=== PATIENT | female | born 1975 | race Caucasian/White ===

== ENCOUNTER 2017-09-08 18:49 | Emergency (ER) | payer SELFPAY ==
[2017-09-08 19:21] VITALS: O2SAT 100
[2017-09-08] MEDS ORDERED: Promethazine/Cod 6.25mg-10mg/5ml Syr UD PO STA (20:00)
--- NOTE | 2017-09-08 20:19 | C.PDOC ---
History Of Present Illness 42 year old female presents to the ED for evaluation of cold symptoms associated with body aches, subjective fever, dry cough for the past week. Pt admits, (+) sick contact family member similar sx. Otherwise, Patient denies headache, drooling, lethargy, CP, SOB, dyspnea, vomit, diarrhea, recent travel. Time Seen by Provider: 09/08/17 19:35 Chief Complaint (Nursing): Flu-like Symptoms History Per: Patient History/Exam Limitations: no limitations Onset/Duration Of Symptoms: Days Current Symptoms Are (Timing): Still Present Location Of Pain: Throat Sick Contacts (Context): None Associated Symptoms: Fever, Cough, Myalgias Recent travel outside of the [place]: No Additional History Per: Patient Past Medical History Reviewed: Historical Data, Nursing Documentation, Vital Signs Vital Signs: Last Vital Signs Temp 99 F 09/08/17 19:15 Pulse 83 09/08/17 19:15 Resp 20 09/08/17 19:15 BP 119/79 09/08/17 19:15 Pulse Ox 100 09/08/17 20:22 - Medical History PMH: No Chronic Diseases Surgical History: Appendectomy Family History: States: Unknown Family Hx - Social History Hx Tobacco Use: No Hx Alcohol Use: No Hx Substance Use: No - Immunization History Hx Tetanus Toxoid Vaccination: No Hx Influenza Vaccination: No Hx Pneumococcal Vaccination: No Review Of Systems Constitutional: Positive for: Fever. Negative for: Chills ENT: Positive for: Nose Congestion Cardiovascular: Negative for: Chest Pain, Palpitations Respiratory: Positive for: Cough. Negative for: Shortness of Breath Gastrointestinal: Negative for: Nausea, Vomiting, Abdominal Pain, Diarrhea Genitourinary: Negative for: Dysuria, Frequency Skin: Negative for: Rash Neurological: Negative for: Weakness, Numbness Physical Exam - Physical Exam Appears: Well, Non-toxic, No Acute Distress Skin: Normal Color, Warm, Dry, No Rash Head: Normacephalic Eye(s): bilateral: PERRL Ear(s): Bilateral: Normal Nose: Discharge (scant clear B/L), No Deformity Oral Mucosa: Moist, No Drooling Throat: Erythema (mild B/L), No Exudate, No Drooling Neck: Trachea Midline, Supple Chest: Symmetrical Cardiovascular: Rhythm Regular, No Murmur, No JVD Respiratory: No Decreased Breath Sounds, No Accessory Muscle Use, No Rales, No Rhonchi, No Stridor, No Wheezing Gastrointestinal/Abdominal: Soft, No Tenderness, No Distention, No Guarding, No Rebound Extremity: No Pedal Edema, No Deformity, No Swelling Neurological/Psych: Oriented x3, Normal Speech, Normal Cognition Gait: Steady ED Course And Treatment O2 Sat by Pulse Oximetry: 100 (On RA) Pulse Ox Interpretation: Normal - Radiology CXR: Interpreted by Me, Viewed By Me CXR Interpretation: Yes: No Acute Disease Progress Note: Plan: -CXR. -Phenergan/codeine 5 ml PO. -Tylenol 975 mg PO. - Zofran 4 mg PO. -Prednisone 60 mg PO. On re-evaluation, pt is awake, comforatble, not in any apparent distress. Afebrile, hemodynamicay stable. NOn -toxic. Tolerate Po well in ED. PuslEOx 100% RA. Neck: SUpple, (-) midline tenderness. ENT: no acute findings. Lungs: CTA B/L, BS equal B/L. Abd: benign. Neurologicaly intact. Imaging review and appears normal. Pt has clinical findings c /w bronchitis. Pt advised on course of ds. ref. to f/u with PMD in 2-3 days for re-eavl. return if any worsneing or new changes. Disposition Counseled Patient/Family Regarding: Studies Performed, Diagnosis, Need For Followup, Rx Given - Disposition Referrals: Treasure Montalvo MD [Medical Doctor] - Disposition: HOME/ ROUTINE Disposition Time: 20:55 Condition: STABLE Additional Instructions: ENCOURAGE FLUIDS TAKE MEDICATION PRESCRIBED FOLLOW UP WITH PMD IN 2-3 DAYS FOR RE-EVALUATION. RETURN TO ED IF ANY WORSENING OR NEW CHANGES. 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 - Scribe Statement The provider has reviewed the documentation as recorded by the Scribe Zhao Quiroz All medical record entries made by the Scribe were at my direction and personally dictated by me. I have reviewed the chart and agree that the record accurately reflects my personal performance of the history, physical exam, medical decision making, and the department course for this patient. I have also personally directed, reviewed, and agree with the discharge instructions and disposition.
[2017-09-08] MEDS ORDERED: Promethazine/Cod 6.25mg-10mg/5ml Syr UD ONE (20:20)
[2017-09-08 21:09] VITALS: BP 107/76; PULSE 71; RESP 18; TEMP 97.7
--- NOTE | 2017-09-09 08:23 | RAD ---
Chest x-ray two views History: Cough. Comparison: None available. Findings: No focal infiltrate or effusion. Heart size within normal limits. Impression: No focal infiltrate or effusion.
== END 2017-09-08 21:09 | disposition home or self-care (01) ==
LOC: C.ER 18:49
DX: J40 Bronchitis, not specified as acute or chronic (principal)

== ENCOUNTER 2017-11-26 00:26 | Emergency (ER) | payer MEDICAID ==
[2017-11-26] MEDS ORDERED: Sodium Chloride 0.9% 1,000 ML IV ONE (01:41)
[2017-11-26] MEDS ORDERED: Sodium Chloride 0.9% 1,000 ML ONE (01:54)
[2017-11-26 02:42] LABS: BASO % 0.5 % (0.0-2.0); EOS # 0.1 K/uL (0.0-0.7); EOS % 0.7 % (0.0-4.0); HEMOGLOBIN 6.9 g/dL (11.0-16.0); LYMPH # 3.8 K/uL (1.0-4.3); MEAN CELL VOLUME 63.1 fL (81.0-99.0); MEAN CORPUSCULAR HEMOGLOBIN 19.2 pg (27.0-31.0); MEAN CORPUSCULAR HGB CONC 30.4 g/dL (33.0-37.0); MEAN PLATELET VOLUME 11.2 fL (7.2-11.7); MONO # 0.6 K/uL (0.0-0.8); MONO % 7.8 % (0.0-10.0); NEUT # 3.2 K/uL (1.8-7.0); RBC 3.6 Mil/uL (3.80-5.20); RED CELL DISTRIBUTION WIDTH 19.5 % (11.5-14.5); WHITE BLOOD COUNT 7.7 K/uL (4.8-10.8)
[2017-11-26 02:57] LABS: HCG,QUALITATIVE URINE NEGATIVE (NEGATIVE)
[2017-11-26 03:02] LABS: ALB/GLOB RATIO 0.9 (1.0-2.1); ALBUMIN 3.7 g/dL (3.5-5.0); ALT/SGPT 7 U/L (9-52); AST/SGOT 16 U/L (14-36); BLOOD UREA NITROGEN 13 mg/dL (7-17); CALCIUM 8.5 mg/dl (8.6-10.4); GFR AFRICAN-AMERICAN > 60; GFR NON-AFRICAN AMERICAN > 60
[2017-11-26 03:05] LABS: SQUAMOUS EPITHIAL 9 /hpf (0-5); URINE BACTERIA RARE (<OCC); URINE BILIRUBIN NEGATIVE (NEGATIVE); URINE BLOOD NEGATIVE (NEGATIVE); URINE CLARITY Hazy (Clear); URINE COLOR Yellow (YELLOW); URINE GLUCOSE (UA) NORMAL (Normal); URINE LEUKOCYTE ESTERASE NEG Leu/uL (Negative); URINE PROTEIN NEGATIVE (NEGATIVE); URINE UROBILINOGEN NORMAL mg/dL (0.2-1.0)
--- NOTE | 2017-11-26 03:45 | C.PDOC ---
History Of Present Illness <Lani Ferrari - Last Filed: 11/26/17 06:32> <Arabella You - Last Filed: 11/26/17 23:23> 42 y/o female presents to the ED complaining of a headache since yesterday. Patient notes she has had headaches for the past 2-3 years, and yesterday her pain increased. She has never been evaluated for her headaches before. Patient was concerned about the possibility of high blood pressure, and took 1 dose of her husbands metoprolol. No prior hx of hypertension. Patient has not been evaluated by an eye doctor. She denies any associated fever, nausea, vomiting, visual changes, chest pain, or SOB. Also tried taking Tylenol without relief. (Lani Ferrari) History Per: Patient History/Exam Limitations: no limitations Onset/Duration Of Symptoms: Days (x2) Current Symptoms Are (Timing): Still Present <Lani Ferrari - Last Filed: 11/26/17 06:32> <Arabella You - Last Filed: 11/26/17 23:23> Time Seen by Provider: 11/26/17 01:33 Chief Complaint (Nursing): Headache Past Medical History Reviewed: Historical Data, Nursing Documentation, Vital Signs Surgical History: Appendectomy Family History: States: Unknown Family Hx - Social History Hx Tobacco Use: No Hx Alcohol Use: No Hx Substance Use: No - Immunization History Hx Tetanus Toxoid Vaccination: No Hx Influenza Vaccination: No Hx Pneumococcal Vaccination: No <Lani Ferrari - Last Filed: 11/26/17 06:32> Vital Signs: Last Vital Signs Temp 98.2 F 11/26/17 04:27 Pulse 67 11/26/17 06:26 Resp 16 11/26/17 06:26 BP 112/69 11/26/17 06:26 Pulse Ox 98 11/26/17 06:34 Review Of Systems Except As Marked, All Systems Reviewed And Found Negative. Constitutional: Negative for: Fever, Chills Eyes: Negative for: Vision Change Cardiovascular: Negative for: Chest Pain Respiratory: Negative for: Shortness of Breath Gastrointestinal: Negative for: Nausea, Vomiting Neurological: Positive for: Headache <Lani Ferrari - Last Filed: 11/26/17 06:32> Physical Exam - Physical Exam Appears: Well, Non-toxic, No Acute Distress Skin: Normal Color, Warm, Dry Head: Atraumatic, Normacephalic Eye(s): bilateral: Normal Inspection, EOMI Nose: Normal Oral Mucosa: Moist Neck: Normal ROM, Supple Chest: Symmetrical Cardiovascular: Rhythm Regular Respiratory: Normal Breath Sounds, No Rales, No Rhonchi, No Wheezing Gastrointestinal/Abdominal: Normal Exam, Soft, No Tenderness Extremity: Bilateral: Atraumatic, Normal Color And Temperature, Normal ROM Neurological/Psych: Oriented x3, Normal Speech, No Other (focal deficits) <Lani Ferrari - Last Filed: 11/26/17 06:32> ED Course And Treatment - Laboratory Results Result Diagrams: 11/26/17 02:36 11/26/17 02:36 O2 Sat by Pulse Oximetry: 98 (RA) Pulse Ox Interpretation: Normal - CT Scan/US CT Head Other Rad Studies (CT/US): Read By Radiologist, Radiology Report Reviewed CT/US Interpretation: FINDINGS: Brain: No intracranial hemorrhage. No mass. No definite edema. Ventricles: No hydrocephalus. Bones/joints: No acute fracture. Soft tissues: Unremarkable. Sinuses: Scattered mild mucosal thickening. Small fluid within right frontal sinus. RIGHT maxillary. retention cyst. Mastoid air cells: No mastoid effusion. Orbits: Unremarkable as visualized. IMPRESSION: 1. No definite acute intracranial abnormality. 2. Sinus disease. Thank you for allowing us to participate in the care of your patient. Dictated and Authenticated by: Marlon Barrientos MD. 11/26/2017 4:05 AM Eastern Time ([place] & [place]) Progress Note: Patient given IV fluids, Toradol, and Reglan. Labs ordered and reviewed. CT Head ordered, and is negative. All diagnostic findings discussed with patient. Labs reviewed, RBC 3.6, Hb 6.9. Case discussed with Dr. Sarah Arriola , patient will be admitted for symptomatic anemia. <Lani Ferrari - Last Filed: 11/26/17 06:32> - Laboratory Results Result Diagrams: 11/26/17 02:36 11/26/17 02:36 <Arabella You - Last Filed: 11/26/17 23:23> Disposition Discussed With Dr.: Mini Arriola Doctor Will See Patient In The: Hospital Counseled Patient/Family Regarding: Studies Performed, Diagnosis - Disposition Disposition Time: 04:28 - POA Present On Arrival: None <Lani Ferrari - Last Filed: 11/26/17 06:32> <Arabella You - Last Filed: 11/26/17 23:23> - Disposition Disposition: AGAINST MEDICAL ADVICE Condition: STABLE Instructions: Normocytic Normochromic Anemia (DC) Forms: [employer] (Citizen Of [place]) - Clinical Impression Clinical Impression: Symptomatic anemia - 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 - Scribe Statement The provider has reviewed the documentation as recorded by the Scribe (Linda Ro) <Lani Ferrari - Last Filed: 11/26/17 06:32> <Arabella You - Last Filed: 11/26/17 23:23> - Scribe Statement All medical record entries made by the Scribe were at my direction and personally dictated by me. I have reviewed the chart and agree that the record accurately reflects my personal performance of the history, physical exam, medical decision making, and the department course for this patient. I have also personally directed, reviewed, and agree with the discharge instructions and disposition. (Lani Ferrari)
--- NOTE | 2017-11-26 04:06 | CT ---
EXAM: CT Head Without Intravenous Contrast CLINICAL HISTORY: 42 years old, female; Pain; Headache TECHNIQUE: Axial computed tomography images of the head/brain without intravenous contrast. All CT scans at this facility use one or more dose reduction techniques, viz.: automated exposure control; ma/kV adjustment per patient size (including targeted exams where dose is matched to indication; i.e. head); or iterative reconstruction technique. Coronal and sagittal reformatted images were created and reviewed. COMPARISON: No relevant prior studies available. FINDINGS: Brain: No intracranial hemorrhage. No mass. No definite edema. Ventricles: No hydrocephalus. Bones/joints: No acute fracture. Soft tissues: Unremarkable. Sinuses: Scattered mild mucosal thickening. Small fluid within right frontal sinus. RIGHT maxillary retention cyst. Mastoid air cells: No mastoid effusion. Orbits: Unremarkable as visualized. IMPRESSION: 1. No definite acute intracranial abnormality. 2. Sinus disease.
[2017-11-26 04:28] VITALS: TEMP 98.2
[2017-11-26 05:44] VITALS: O2SAT 98
[2017-11-26 06:28] VITALS: BP 112/69; PULSE 67; RESP 16
== END 2017-11-26 07:15 | disposition left against medical advice (07) ==
LOC: C.ER 00:26 → UNDOADMOB 04:28 → C.9E 04:28 → C.5S 05:50 → C.9E 05:50 → C.ER 07:15
DX: D64.9 Anemia, unspecified (principal)
CPT/HCPCS: 70450; 80053; 81001; 84703; 85025; 86850; 86900; 86920; 96361; 96374; 99285; J1885; J7040

== ENCOUNTER 2017-11-28 12:48 | Observation (INO) | payer MEDICAID ==
--- NOTE | 2017-11-28 14:10 | C.PDOC ---
Time Seen by Provider: 11/28/17 14:05 Chief Complaint (Nursing): Dizziness/Lightheaded Past Medical History Vital Signs: Last Vital Signs Temp 98.2 F 11/28/17 13:28 Pulse 71 11/28/17 13:28 Resp 20 11/28/17 13:28 BP 117/68 11/28/17 13:28 Pulse Ox 100 11/28/17 13:28 Surgical History: Appendectomy Family History: States: Unknown Family Hx - Social History Hx Tobacco Use: No Hx Alcohol Use: No Hx Substance Use: No - Immunization History Hx Tetanus Toxoid Vaccination: No Hx Influenza Vaccination: No Hx Pneumococcal Vaccination: No ED Course And Treatment O2 Sat by Pulse Oximetry: 100 Disposition - Disposition
[2017-11-28] MEDS ORDERED: Sodium Chloride 0.9% 1,000 ML IV ONE (14:27)
--- NOTE | 2017-11-28 14:29 | C.PDOC ---
History Of Present Illness 42 y/o female with PMHx of Chronic Anemia, Heavy Menses and Hemorrhoids presents to ED with complaints of persistent dizziness. Patient was seen on 11/26 and was found to have anemia with hemoglobin of 6.9, was admitted for blood transfusion. Patient signed out AMA prior to receiving blood transfusion and is requesting to stay now for further evaluation. Patient denies vomiting, rectal bleeding, blood disorders or any other complaints at this time. PMD: Dr. Montalvo Time Seen by Provider: 11/28/17 14:05 Chief Complaint (Nursing): Dizziness/Lightheaded History Per: Patient History/Exam Limitations: no limitations Onset/Duration Of Symptoms: Days Current Symptoms Are (Timing): Still Present Past Medical History Reviewed: Historical Data, Nursing Documentation, Vital Signs Vital Signs: Last Vital Signs Temp 98.2 F 11/28/17 13:28 Pulse 71 11/28/17 13:28 Resp 20 11/28/17 13:28 BP 117/68 11/28/17 13:28 Pulse Ox 100 11/28/17 15:41 - Medical History PMH: No Chronic Diseases Surgical History: Appendectomy Family History: States: No Known Family Hx - Social History Hx Tobacco Use: No Hx Alcohol Use: No Hx Substance Use: No - Immunization History Hx Tetanus Toxoid Vaccination: No Hx Influenza Vaccination: No Hx Pneumococcal Vaccination: No Review Of Systems Except As Marked, All Systems Reviewed And Found Negative. Constitutional: Negative for: Fever, Chills Cardiovascular: Positive for: Light Headedness. Negative for: Chest Pain, Palpitations Respiratory: Negative for: Cough, Shortness of Breath, SOB with Excertion, Wheezing Gastrointestinal: Negative for: Nausea, Vomiting, Abdominal Pain, Diarrhea, Hematochezia, Hematemesis Genitourinary: Positive for: Vaginal Bleeding (hx of heavy menses- none currently). Negative for: Dysuria Neurological: Positive for: Dizziness. Negative for: Headache Physical Exam - Physical Exam Appears: Well, Non-toxic, No Acute Distress Skin: Warm, Dry, No Rash Head: Atraumatic, Normacephalic Eye(s): bilateral: PERRL, EOMI, Conjunctiva Pale Oral Mucosa: Moist Neck: Normal ROM, Supple Cardiovascular: Rhythm Regular Respiratory: Normal Breath Sounds, No Rales, No Rhonchi, No Wheezing Gastrointestinal/Abdominal: Soft, No Tenderness, No Distention, No Guarding, No Rebound Back: Normal Inspection, No CVA Tenderness Extremity: Normal ROM, Capillary Refill (<2 seconds) Neurological/Psych: Oriented x3, Normal Speech, Normal Cognition Gait: Steady ED Course And Treatment - Laboratory Results Result Diagrams: 11/28/17 14:39 11/28/17 14:39 O2 Sat by Pulse Oximetry: 100 Pulse Ox Interpretation: Normal Medical Decision Making Medical Decision Making: Plan: ECG, POC urine Preg, Blood work ordered. IV fluids administered Patient will be admitted for blood transfusion. Labs significant for microcytic anemia. Patient is symptomatic and will need further evaluation. Transfusion of 2 units ordered. Spoke to Dr. Fenton and will be admitted for symptomatic anemia Disposition - Disposition Disposition: HOSPITALIZED Disposition Time: 15:40 Condition: FAIR - Clinical Impression Clinical Impression: Dizziness, Symptomatic anemia, Microcytic anemia - Scribe Statement The provider has reviewed the documentation as recorded by the Ronnieibbrandyn Stout All medical record entries made by the Ronnieibbrandyn were at my direction and personally dictated by me. I have reviewed the chart and agree that the record accurately reflects my personal performance of the history, physical exam, medical decision making, and the department course for this patient. I have also personally directed, reviewed, and agree with the discharge instructions and disposition.
[2017-11-28 14:45] LABS: BASO % 0.7 % (0.0-2.0); EOS # 0.1 K/uL (0.0-0.7); EOS % 0.8 % (0.0-4.0); HEMOGLOBIN 7.5 g/dL (11.0-16.0); LYMPH # 2.8 K/uL (1.0-4.3); LYMPH % 45.1 % (20.0-40.0); MEAN CELL VOLUME 62.6 fL (81.0-99.0); MEAN CORPUSCULAR HEMOGLOBIN 19.2 pg (27.0-31.0); MEAN CORPUSCULAR HGB CONC 30.6 g/dL (33.0-37.0); MONO # 0.5 K/uL (0.0-0.8); MONO % 7.8 % (0.0-10.0); NEUT # 2.9 K/uL (1.8-7.0); NEUT % 45.6 % (50.0-75.0); RBC 3.93 Mil/uL (3.80-5.20); RED CELL DISTRIBUTION WIDTH 19.1 % (11.5-14.5); WHITE BLOOD COUNT 6.3 K/uL (4.8-10.8)
[2017-11-28 14:53] LABS: INR 1.1; PROTHROMBIN TIME 12.5 SECONDS (9.7-12.2)
[2017-11-28 14:59] LABS: ALB/GLOB RATIO 0.9 (1.0-2.1); ALT/SGPT 12 U/L (9-52); AST/SGOT 15 U/L (14-36); BLOOD UREA NITROGEN 10 mg/dL (7-17); GFR AFRICAN-AMERICAN > 60; GFR NON-AFRICAN AMERICAN > 60
[2017-11-28] MEDS ORDERED: Sodium Chloride 0.9% 1,000 ML ONE (15:11)
--- NOTE | 2017-11-28 19:40 | CP.PCM.HP ---
Past Patient History - Infectious Disease Hx of Infectious Diseases: None - Past Social History Smoking Status: Never Smoked - PSYCHIATRIC Hx Substance Use: No - SURGICAL HISTORY Hx Appendectomy: Yes - ANESTHESIA Hx Anesthesia: Yes Hx Anesthesia Reactions: No Meds Allergies/Adverse Reactions: Allergies Allergy/AdvReac Type Severity Reaction Status Date / Time No Known Allergies Allergy Verified 11/28/17 13:34 Results - Vital Signs Recent Vital Signs: Last Vital Signs Temp 98.2 F 11/28/17 19:19 Pulse 70 11/28/17 19:19 Resp 18 11/28/17 19:19 BP 121/85 11/28/17 19:19 Pulse Ox 99 11/28/17 18:30 - Labs Result Diagrams: 11/28/17 14:39 11/28/17 14:39 Labs: Laboratory Results - last 24 hr 11/28/17 11/28/17 11/28/17 14:39 14:39 14:39 WBC 6.3 RBC 3.93 Hgb 7.5 L Hct 24.6 L MCV 62.6 L MCH 19.2 L MCHC 30.6 L RDW 19.1 H Plt Count 255 MPV 11.0 Neut % (Auto) 45.6 L Lymph % (Auto) 45.1 H [place] % (Auto) 7.8 Eos % (Auto) 0.8 Baso % (Auto) 0.7 Neut # (Auto) 2.9 Lymph # (Auto) 2.8 [place] # (Auto) 0.5 Eos # (Auto) 0.1 Baso # (Auto) 0.0 PT 12.5 H INR 1.1 APTT 30 Sodium 139 Potassium 4.5 Chloride 103 Carbon Dioxide 26 Anion Gap 14 BUN 10 Creatinine 0.6 L Est GFR ( Amer) > 60 Est GFR (Non-Af Amer) > 60 Random Glucose 96 Calcium 9.0 Total Bilirubin 0.7 AST 15 ALT 12 Alkaline Phosphatase 49 Total Protein 8.4 H Albumin 4.0 Globulin 4.3 H Albumin/Globulin Ratio 0.9 L Blood Type Antibody Screen 11/28/17 14:39 WBC RBC Hgb Hct MCV MCH MCHC RDW Plt Count MPV Neut % (Auto) Lymph % (Auto) [place] % (Auto) Eos % (Auto) Baso % (Auto) Neut # (Auto) Lymph # (Auto) [place] # (Auto) Eos # (Auto) Baso # (Auto) PT INR APTT Sodium Potassium Chloride Carbon Dioxide Anion Gap BUN Creatinine Est GFR ( Amer) Est GFR (Non-Af Amer) Random Glucose Calcium Total Bilirubin AST ALT Alkaline Phosphatase Total Protein Albumin Globulin Albumin/Globulin Ratio Blood Type O POSITIVE Antibody Screen Negative
[2017-11-29 01:47] VITALS: RESP 20
[2017-11-29 07:16] LABS: HEMOGLOBIN 9.4 g/dL (11.0-16.0); MEAN CORPUSCULAR HEMOGLOBIN 21.5 pg (27.0-31.0); MEAN CORPUSCULAR HGB CONC 31.8 g/dL (33.0-37.0); RBC 4.36 Mil/uL (3.80-5.20); RED CELL DISTRIBUTION WIDTH 24.7 % (11.5-14.5); WHITE BLOOD COUNT 8.7 K/uL (4.8-10.8)
[2017-11-29 07:29] LABS: MEAN CELL VOLUME 67.6 fL (81.0-99.0)
[2017-11-29 12:34] LABS: IRON 24 ug/dL (37-170)
[2017-11-29 12:43] LABS: % IRON SATURATION 6 (20-55); TOTAL IRON BINDING CAPACITY 431 ug/dL (250-450)
[2017-11-29 16:08] VITALS: BP 127/84; TEMP 98.1; O2SAT 96
[2017-11-29 16:27] VITALS: PULSE 72
--- NOTE | 2017-11-29 17:44 | CP.PCM.PN ---
Subjective - Date & Time of Evaluation Date of Evaluation: 11/29/17 Time of Evaluation: 14:00 - Subjective Subjective: CHEMIST PHYSICAL NOTES Patient seen today, denies any chest , sob, dizziness, abdominal pain N/VD s/p 2 unit of PRBC hgb - improved - 9.4>7.5 labs- iron def. anemia D/W Dr. Fenton, stable for discharge home today and f/u PMD in [address] jiménez office in 1 week( f/u for anemia) and continue wiht feso2 at home discharge plan discussed with patient, who understands and agrees with plan RX given [id number] Objective - Vital Signs/Intake and Output Vital Signs (last 24 hours): Temp Pulse Resp BP Pulse Ox 98.1 F 72 20 127/84 96 11/29/17 15:20 11/29/17 16:00 11/29/17 15:20 11/29/17 15:20 11/29/17 15:20 Intake and Output: 11/29/17 11/29/17 06:59 18:59 Intake Total 795 680 Balance 795 680 - Medications Medications: Current Medications Acetaminophen (Tylenol 325mg Tab) 650 mg PO Q6 PRN PRN Reason: Headache Last Admin: 11/29/17 13:56 Dose: 650 mg - Labs Labs: 11/29/17 06:59 11/28/17 14:39 PT 12.5 SECONDS (9.7-12.2) H 11/28/17 14:39 INR 1.1 11/28/17 14:39 APTT 30 SECONDS (21-34) 11/28/17 14:39
== END 2017-11-29 18:14 | disposition home or self-care (01) ==
LOC: C.ER 12:48 → C.9E 15:39 → C.6T 17:32
PROVIDERS: ADMIT Internal Medicine Critical Care Medicine; ATTEND Internal Medicine Critical Care Medicine
DX: D50.9 Iron deficiency anemia, unspecified (principal)
CPT/HCPCS: 36415; 36430; 80053; 82728; 83540; 83550; 85025; 85027; 85610; 85730; 86850; 86900; 86920; 96360; 99285; G0378; J7040; P9051

== ENCOUNTER 2018-07-30 00:10 | Emergency (ER) | payer MEDICAID ==
[2018-07-30 00:18] VITALS: O2SAT 97
[2018-07-30] MEDS ORDERED: Sodium Chloride 0.9% 500 ML IV ONE (00:31)
--- NOTE | 2018-07-30 00:48 | C.PDOC ---
History Of Present Illness 43 year old female with a Hx of vaginal bleeding and anemia requiring transfusions in the past presents to the ER with a complaint of dizziness for the last 3 days, nonvertiginous, lightheadedness, worse with exertion, and headache. Patient states symptoms are similar to when she was diagnosed with anemia and required transfusion. Patient reports she has been having vaginal bleeding for the past 7 days from her period which she states very heavy with clots. Denies pelvic cramping, bleeding from other locations, or other chronic illnesses. Hx of appendectomy. No significant family Hx, no drug/tobacco/ETOH use. PMD: Dr. Montalvo <Joanna John - Last Filed: 08/01/18 16:05> <Harriet Godinez - Last Filed: 07/30/18 01:44> History Per: Patient History/Exam Limitations: no limitations Onset/Duration Of Symptoms: Hrs Current Symptoms Are (Timing): Still Present Activity At Onset Of Symptoms: Exertional Activity Seizure Or Post-ictal Symptoms: None Possible Causative Factor(s): Other (Anemia, Vaginal bleeding) Fall Associated With With Symptoms: No Recent travel outside of the [place]: No - Symptoms Of CVA Associated Symptoms: denies: Impaired Speech, Seizure Activity, New Vision Deficit(Left), New Vision Deficit(Right), Decreased Ability To Walk, New Confusion <Joanna John - Last Filed: 08/01/18 16:05> Time Seen by Provider: 07/30/18 00:27 Chief Complaint (Nursing): Dizziness/Lightheaded Past Medical History Vital Signs: Last Vital Signs Temp 98.2 F 07/30/18 00:10 Pulse 81 07/30/18 00:10 Resp 20 07/30/18 00:10 BP 117/74 07/30/18 00:10 Pulse Ox 97 07/30/18 00:56 <Harriet Godinez - Last Filed: 07/30/18 01:44> Reviewed: Historical Data, Nursing Documentation, Vital Signs Vital Signs: Last Vital Signs Temp 98.2 F 07/30/18 00:10 Pulse 81 07/30/18 00:10 Resp 20 07/30/18 00:10 BP 117/74 07/30/18 00:10 Pulse Ox 97 07/30/18 00:10 - Medical History PMH: Anemia, HTN Surgical History: Appendectomy Family History: States: Unknown Family Hx - Social History Hx Tobacco Use: No Hx Alcohol Use: No Hx Substance Use: No - Immunization History Hx Tetanus Toxoid Vaccination: No Hx Influenza Vaccination: No Hx Pneumococcal Vaccination: No <Joanna John - Last Filed: 08/01/18 16:05> Review Of Systems Cardiovascular: Positive for: Light Headedness Genitourinary: Positive for: Vaginal Bleeding Neurological: Positive for: Headache, Dizziness <Joanna John - Last Filed: 08/01/18 16:05> Physical Exam - Physical Exam Appears: No Acute Distress, Other (Tired appearing) Skin: Warm, Dry Head: Atraumatic, Normacephalic Eye(s): bilateral: PERRL, EOMI Nose: Normal Lips: Normal Appearing Throat: No Erythema, No Exudate Neck: Normal ROM, Supple Chest: Symmetrical, No Tenderness Cardiovascular: Rhythm Regular, No Murmur Respiratory: Normal Breath Sounds, No Wheezing Gastrointestinal/Abdominal: Soft, No Tenderness Back: Normal Inspection, No Decreased ROM Extremity: Normal ROM, No Deformity Neurological/Psych: Oriented x3, Normal Motor, Normal Sensation <Joanna John - Last Filed: 08/01/18 16:05> ED Course And Treatment - Laboratory Results Result Diagrams: 07/30/18 01:04 07/30/18 01:04 Pulse Ox Interpretation: Normal Reevaluation Time: 01:46 Reassessment Condition: Improved <Harriet Godinez - Last Filed: 07/30/18 01:44> - Laboratory Results Result Diagrams: 07/30/18 01:04 07/30/18 01:04 O2 Sat by Pulse Oximetry: 97 <Joanna John - Last Filed: 08/01/18 16:05> Medical Decision Making Medical Decision Making: Upon provider reevaluation patient is feeling better, is medically stable, and requires no further treatment in the ED at this time. Patient will be discharged home with Rx for macrobid . Counseling was provided and all questions were answered regarding diagnosis and need for follow up withdr montalvo. There is agreement to discharge plan. Return if symptoms persist or worsen. <Harriet Godinez - Last Filed: 07/30/18 01:44> Medical Decision Making: Impression: Lightheadedness Differential diagnosis includes but not limited to: Anemia, Electrolyte abnormality, Dehydration <Joanna John - Last Filed: 08/01/18 16:05> Disposition Counseled Patient/Family Regarding: Studies Performed, Diagnosis, Need For Followup, Rx Given - Disposition Disposition Time: 01:00 <Harriet Godinez - Last Filed: 07/30/18 01:44> <Joanna John - Last Filed: 08/01/18 16:05> - Disposition Referrals: Treasure Montalvo MD [Medical Doctor] - Disposition: HOME/ ROUTINE Condition: FAIR Additional Instructions: Please return if symptoms recur Prescriptions: Nitrofurantoin Macrocrystals [Macrobid] 1 cap PO BID #14 cap Instructions: Anemia Caused by Low Iron, Adult (DC), Urinary Tract Infection, Adult (DC), Heavy Periods (DC) Forms: [facility] (Mexican) - Clinical Impression Clinical Impression: Microcytic anemia, History of heavy vaginal bleeding, UTI (urinary tract infection) - Scribe Statement The provider has reviewed the documentation as recorded by the Scribe James Carter All medical record entries made by the Scribe were at my direction and personally dictated by me. I have reviewed the chart and agree that the record accurately reflects my personal performance of the history, physical exam, m edical decision making, and the department course for this patient. I have also personally directed, reviewed, and agree with the discharge instructions and disposition. <Joanna John - Last Filed: 08/01/18 16:05> Physician Patient Turnover Patient Signed Over To: Harriet Godinez Handoff Comments: Pending labs and dispo. <Joanna John - Last Filed: 08/01/18 16:05>
[2018-07-30] MEDS ORDERED: Sodium Chloride 0.9% 1,000 ML ONE (01:08)
[2018-07-30 01:11] LABS: BASO % 0.8 % (0.0-2.0); EOS % 0.8 % (0.0-4.0); HEMOGLOBIN 9.7 g/dL (11.0-16.0); LYMPH # 2.3 K/uL (1.0-4.3); LYMPH % 41.2 % (20.0-40.0); MEAN CELL VOLUME 75.7 fL (81.0-99.0); MEAN CORPUSCULAR HEMOGLOBIN 24.2 pg (27.0-31.0); MEAN PLATELET VOLUME 10.6 fL (7.2-11.7); MONO # 0.5 K/uL (0.0-0.8); MONO % 8.9 % (0.0-10.0); NEUT # 2.7 K/uL (1.8-7.0); NEUT % 48.3 % (50.0-75.0); NRBC % 0.1 % (0.0-2.0); RED CELL DISTRIBUTION WIDTH 18.9 % (11.5-14.5); WHITE BLOOD COUNT 5.6 K/uL (4.8-10.8)
[2018-07-30 01:15] LABS: HCG,QUALITATIVE URINE NEGATIVE (NEGATIVE); SQUAMOUS EPITHIAL 22 /hpf (0-5); URINE BACTERIA RARE (<OCC); URINE BILIRUBIN NEGATIVE (NEGATIVE); URINE BLOOD 3+ (NEGATIVE); URINE CLARITY Hazy (Clear); URINE COLOR Yellow (YELLOW); URINE GLUCOSE (UA) NORMAL (Normal); URINE LEUKOCYTE ESTERASE 1+ Leu/uL (Negative); URINE PROTEIN 2+ mg/dL (NEGATIVE); URINE UROBILINOGEN NORMAL mg/dL (0.2-1.0)
[2018-07-30 01:17] LABS: INR 1.2; PROTHROMBIN TIME 12.8 SECONDS (9.7-12.2)
[2018-07-30 01:23] LABS: ALB/GLOB RATIO 1.3 (1.0-2.1); ALBUMIN 4.6 g/dL (3.5-5.0); ALT/SGPT 20 U/L (9-52); AST/SGOT 19 U/L (14-36); BLOOD UREA NITROGEN 20 mg/dL (7-17); CALCIUM 8.9 mg/dl (8.6-10.4); GFR NON-AFRICAN AMERICAN > 60
[2018-07-30 01:31] LABS: TOTAL IRON BINDING CAPACITY 412 ug/dL (250-450)
[2018-07-30 01:33] LABS: % IRON SATURATION 8 (20-55); IRON 32 ug/dL (37-170)
[2018-07-30 01:59] LABS: FERRITIN 3.6 ng/mL
[2018-07-30 02:05] VITALS: BP 100/68; PULSE 70; RESP 18; TEMP 98.3
== END 2018-07-30 02:57 | disposition home or self-care (01) ==
LOC: C.ER 00:10
DX: D50.9 Iron deficiency anemia, unspecified (principal); N39.0 Urinary tract infection, site not specified; N93.9 Abnormal uterine and vaginal bleeding, unspecified; I10 Essential (primary) hypertension
CPT/HCPCS: 80053; 81001; 82728; 83540; 83550; 84703; 85025; 85610; 85730; 86850; 86870; 86900; 96360; 99285; J7040

== ENCOUNTER 2018-10-14 04:11 | Emergency (ER) | payer MEDICAID ==
[2018-10-14 04:23] VITALS: BP 131/86; PULSE 84; RESP 20; TEMP 98.9; O2SAT 99
[2018-10-14] MEDS ORDERED: Neomycin/Polymyxin/Hydrocort Otic Soln BOTTLE AS STA (04:45)
--- NOTE | 2018-10-14 04:50 | C.PDOC ---
History Of Present Illness 43 y/o female c/o 4 days of left ear pain. worse tonight. sts she had blood coming from ear. denies fever. denies foreign objects in ears. no head trauma. Time Seen by Provider: 10/14/18 04:18 Chief Complaint (Nursing): ENT Problem History Per: Patient History/Exam Limitations: None Onset/Duration Of Symptoms: Days (4) Current Symptoms Are (Timing): Worse Quality (Ear): Pain W/Touch, Other (blood from ear). denies: Foreign Body Symptoms Have Been: Continuous Severity: Moderate Past Medical History Reviewed: Historical Data, Nursing Documentation, Vital Signs Vital Signs: Last Vital Signs Temp 98.9 F 10/14/18 04:20 Pulse 84 10/14/18 04:20 Resp 20 10/14/18 04:20 BP 131/86 10/14/18 04:20 Pulse Ox 99 10/14/18 04:20 - Medical History PMH: Anemia, HTN Surgical History: Appendectomy Family History: States: Unknown Family Hx - Social History Hx Tobacco Use: No Hx Alcohol Use: No Hx Substance Use: No - Immunization History Hx Tetanus Toxoid Vaccination: No Hx Influenza Vaccination: No Hx Pneumococcal Vaccination: No Review Of Systems Constitutional: Negative for: Fever, Chills Eyes: Negative for: Pain ENT: Positive for: Ear Pain, Ear Discharge (blood tonight left). Negative for: Nose Discharge, Nose Congestion, Throat Pain Physical Exam - Physical Exam Appears: Non-toxic, No Acute Distress Skin: Warm, Dry Head: Atraumatic, Normacephalic Eye(s): bilateral: Normal Inspection Ear(s): Left: Normal (excoriation to medial aspect ecernal canal, no mastoid tenderness, tm intact), Right: TM Dull Nose: No Discharge Oral Mucosa: Moist Tongue: No Swelling Lips: No Swelling Throat: No Erythema, No Exudate Neck: Supple Lymphatic: No Adenopathy ED Course And Treatment O2 Sat by Pulse Oximetry: 99 Medical Decision Making Medical Decision Making: left ear pain with excoriation- will tx with tylenol and cortisporin otic suspension Disposition Counseled Patient/Family Regarding: Diagnosis, Need For Followup - Disposition Referrals: Treasure Montalvo MD [Medical Doctor] - Disposition: HOME/ ROUTINE Disposition Time: 04:51 Condition: GOOD Additional Instructions: Follow up with Dr Gray in 1-2 days. Tylenol 650 mg by mouth every 4-6 hours for pain No foreign objects in ears use 4 drops of cortisporin otic suspension in left ear every 8 hours for next week. Prescriptions: Acetaminophen [Tylenol 325mg tab] 650 mg PO Q6 #30 tab Instructions: Outer Ear Infection (DC) Forms: [facility] (Peruvian), General Discharge Instructions - Clinical Impression Clinical Impression: Otitis externa of left ear
== END 2018-10-14 05:09 | disposition home or self-care (01) ==
LOC: C.ER 04:11
DX: H60.92 Unspecified otitis externa, left ear (principal); I10 Essential (primary) hypertension

== ENCOUNTER 2018-11-04 21:32 | Emergency (ER) | payer MEDICAID ==
[2018-11-04 22:02] VITALS: BP 137/82; PULSE 78; RESP 16; TEMP 98; O2SAT 100
[2018-11-04] MEDS ORDERED: Albuterol 0.083% Inhal Sol (2.5 mg/3 mL) UD ONE (22:46)
[2018-11-04] MEDS ORDERED: Albuterol 0.083% Inhal Sol (2.5 mg/3 mL) UD INH SCH (23:00)
--- NOTE | 2018-11-04 23:32 | C.PDOC ---
History Of Present Illness 43 year old female presents after she woke up tonight feeling SOB with chest tightness. Patient reports Hx of asthma, also notes having some left ear pain. She used her husbands inhaler at home with no relief and took an aspirin. Denies fever, cough, or sore throat. Time Seen by Provider: 11/04/18 22:24 Chief Complaint (Nursing): Medical Clearance History Per: Patient History/Exam Limitations: no limitations Onset/Duration Of Symptoms: Hrs Current Symptoms Are (Timing): Still Present Recent travel outside of the [place]: No Past Medical History Reviewed: Historical Data, Nursing Documentation, Vital Signs Vital Signs: Last Vital Signs Temp 98 F 11/04/18 21:51 Pulse 78 11/04/18 21:51 Resp 16 11/04/18 21:51 BP 137/82 11/04/18 21:51 Pulse Ox 100 11/04/18 21:51 - Medical History PMH: Anemia, HTN Surgical History: Appendectomy Family History: States: Unknown Family Hx - Social History Hx Tobacco Use: No Hx Alcohol Use: No Hx Substance Use: No - Immunization History Hx Tetanus Toxoid Vaccination: No Hx Influenza Vaccination: No Hx Pneumococcal Vaccination: No Review Of Systems Constitutional: Negative for: Fever, Chills ENT: Negative for: Throat Pain Cardiovascular: Negative for: Chest Pain, Palpitations Respiratory: Positive for: Shortness of Breath, Other (Chest tightness). Negative for: Cough Physical Exam - Physical Exam Appears: Non-toxic Skin: Normal Color, Warm Head: Atraumatic, Normacephalic Eye(s): bilateral: Normal Inspection Ear(s): Bilateral: Normal Nose: Normal Oral Mucosa: Moist Throat: Normal, No Erythema, No Exudate Neck: Normal, Supple Chest: Symmetrical, No Tenderness Cardiovascular: Rhythm Regular Respiratory: Decreased Breath Sounds, No Rales, No Rhonchi, No Wheezing Neurological/Psych: Oriented x3, Normal Speech ED Course And Treatment O2 Sat by Pulse Oximetry: 100 (Room air) Pulse Ox Interpretation: Normal Progress Note: Albuterol nebulizer and prednisone administered. Patient is resting comfortably in no acute respiratory distress with clear breath sounds, vitals are stable, will discharge home with Rx and instructions to follow up with PMD. Disposition Counseled Patient/Family Regarding: Diagnosis, Need For Followup - Disposition Referrals: Treasure Montalvo MD [Medical Doctor] - Disposition: HOME/ ROUTINE Disposition Time: 23:31 Condition: STABLE Additional Instructions: Please follow up with PMD Take medications as directed Return to ER if worse Prescriptions: Albuterol HFA [Ventolin HFA 90 mcg/actuation (8 g)] 2 puff IH [id number] #1 inhaler predniSONE [Prednisone] 40 mg PO DAILY #8 tab Instructions: Asthma, Adult (DC) Forms: [employer] (Indonesian) - Clinical Impression Clinical Impression: Asthma - PA / [employer]STATE [employer]ER / Resident Statement MD/DO has reviewed & agrees with the documentation as recorded. - Scribe Statement The provider has reviewed the documentation as recorded by the Scribe James Carter All medical record entries made by the Scribe were at my direction and personally dictated by me. I have reviewed the chart and agree that the record a ccurately reflects my personal performance of the history, physical exam, medical decision making, and the department course for this patient. I have also personally directed, reviewed, and agree with the discharge instructions and disposition.
== END 2018-11-04 23:35 | disposition home or self-care (01) ==
LOC: C.ER 21:32
DX: J45.909 Unspecified asthma, uncomplicated (principal)

== ENCOUNTER 2018-12-11 13:56 | Observation (INO) | payer MEDICAID | END 2018-12-14 15:09 | disposition home or self-care (01) | LOC: C.ER 13:56 → C.9E 15:54 → C.6T 17:13 | PROVIDERS: ADMIT Internal Medicine | CPT/HCPCS: 36415; 36430; 71046; 76830; 76856; 80053; 80061; 81001; 82607; 82728; 82746; 83036; 83540; 83550; 83735; 84100; 84443; 84703; 85025; 85044; 85610; 85660; 85730; 86850; 86900; 86905; 86920; 86922; 93005; 99283; G0378; J2916; P9051 ==